=== PATIENT | male | born 1960 | race Caucasian/White ===

== ENCOUNTER 2020-04-01 22:27 | Inpatient (IN) | payer SELFPAY ==
[~2020-04-01] VITALS: Ht 172.7 cm; Wt 85.6 kg
--- NOTE | 2020-04-01 22:52 | PHYS DOC ---
General Adult EDM: Chief Complaint: FATIGUE HPI: HPI: Patient is a 59 year old male who arrives with chief complaint of fatigue. Patient was recently told he has a low hemoglobin and was told to come in although he waited a couple weeks to come in. Patient has had some generalized weakness but denies blood in his stool. Patient has some mild shortness of breath and a chronic smoker's cough but denies any fever. Patient has some abdominal discomfort with eating but not at the current time. Review of Systems: Review of Systems: Constitutional: Denies fever or chills. [] Complains of generalized weakness Eyes: Denies change in visual acuity. [] HENT: Denies nasal congestion or sore throat. [] Respiratory: Complains of mild smoker's cough and mild shortness of breath Cardiovascular: Denies chest pain or edema. [] GI: Complains of intermittent abdominal pain but no vomiting diarrhea or blood in the stool : Denies dysuria. [] Musculoskeletal: Denies back pain or joint pain. [] Integument: Denies rash. [] Neurologic: Denies headache, focal weakness or sensory changes. [] Endocrine: Denies polyuria or polydipsia. [] Lymphatic: Denies swollen glands. [] Psychiatric: Denies depression or anxiety. [] Heart Score: Risk Factors: Risk Factors: DM, Current or recent (<one month) smoker, HTN, HLP, family history of CAD, obesity. Risk Scores: Score 0 - 3: 2.5% MACE over next 6 weeks - Discharge Home Score 4 - 6: 20.3% MACE over next 6 weeks - Admit for Clinical Observation Score 7 - 10: 72.7% MACE over next 6 weeks - Early Invasive Strategies Physical Exam: PE: Constitutional: Well developed, well nourished, no acute distress, non-toxic appearance. [] HENT: Normocephalic, atraumatic, bilateral external ears normal, no trismus nose normal. [] Eyes: PERRLA, EOMI, pale conjunctiva Neck: Normal range of motion, no tenderness, supple, no stridor. [] Cardiovascular:Heart rate regular rhythm, peripheral pulse intact, cap refill brisk Lungs & Thorax: Bilateral breath sounds clear, no respiratory distress Abdomen: Bowel sounds normal, soft, no tenderness, no masses, no pulsatile masses. [] Skin: Warm, dry, no erythema, no rash. [] Back: No tenderness, no CVA tenderness. [] Extremities: Mild edema bilateral lower extremity edema, peripheral pulses intact, no signs of trauma Neurologic: Alert and oriented X 3, normal motor function, normal sensory function, no focal deficits noted. [] Psychologic: Affect normal, judgement normal, mood normal. [] Current Patient Data: Labs: Laboratory Tests Test 04/01/20 23:04 04/01/20 23:33 White Blood Count 13.5 x10^3/uL Red Blood Count 2.76 x10^6/uL Hemoglobin 5.1 g/dL Hematocrit 18.2 % Mean Corpuscular Volume 66 fL Mean Corpuscular Hemoglobin 19 pg Mean Corpuscular Hemoglobin Concent 28 g/dL Red Cell Distribution Width 19.4 % Platelet Count 402 x10^3/uL Neutrophils (%) (Auto) 73 % Lymphocytes (%) (Auto) 17 % Monocytes (%) (Auto) 8 % Eosinophils (%) (Auto) 1 % Basophils (%) (Auto) 1 % Neutrophils # (Auto) 9.8 x10^3/uL Lymphocytes # (Auto) 2.3 x10^3/uL Monocytes # (Auto) 1.0 x10^3/uL Eosinophils # (Auto) 0.1 x10^3/uL Basophils # (Auto) 0.2 x10^3/uL Platelet Estimate Adequate Polychromasia Slight Hypochromasia Marked Anisocytosis Slight Microcytosis Marked Spherocytes Occ Ovalocytes Few Sodium Level 137 mmol/L Potassium Level 3.7 mmol/L Chloride Level 100 mmol/L Carbon Dioxide Level 26 mmol/L Anion Gap 11 Blood Urea Nitrogen 17 mg/dL Creatinine 1.0 mg/dL Estimated GFR (Cockcroft-Gault) 76.5 BUN/Creatinine Ratio 17 Glucose Level 103 mg/dL Calcium Level 8.5 mg/dL Total Bilirubin 0.3 mg/dL Aspartate Amino Transf (AST/SGOT) 17 U/L Alanine Aminotransferase (ALT/SGPT) 23 U/L Alkaline Phosphatase 95 U/L Total Protein 7.5 g/dL Albumin 3.6 g/dL Albumin/Globulin Ratio 0.9 Stool Occult Blood Negative Current Medications Medications (Trade) Dose Ordered Sig/Shania Route PRN Reason Start Time Stop Time Status Last Admin Dose Admin Ondansetron HCl (Zofran) 4 mg PRN Q8HRS PRN IV NAUSEA/VOMITING 1st choice 04/02/20 00:45 04/03/20 00:44 Vital Signs: Vital Signs Date Time Temp Pulse Resp B/P (MAP) Pulse Ox O2 Delivery O2 Flow Rate FiO2 04/02/20 04:45 98.5 101 20 159/70 98.5 04/02/20 03:45 98.2 98 20 127/69 98.2 04/02/20 03:30 98.2 100 18 133/67 98.2 04/02/20 02:45 Nasal Cannula 2.0 04/02/20 02:13 98.1 109 18 142/62 (88) 100 Nasal Cannula 2.0 98.1 04/02/20 01:53 101 136/69 (91) 98 Room Air 04/02/20 01:23 105 131/62 (85) 97 Room Air 04/02/20 00:53 99 148/76 (100) 98 Room Air 04/02/20 00:23 99 137/76 (96) 98 Room Air 04/01/20 23:53 99 138/70 (92) 100 Room Air 04/01/20 23:23 99 124/64 (84) 99 Room Air 04/01/20 23:03 102 126/70 (88) 99 Room Air 04/01/20 22:35 97.3 118 24 95/51 (66) 96 Room Air 97.3 EKG: EKG: [] EKG interpreted by me normal sinus rhythm with a rate of 100 normal axis normal intervals normal ST segments Radiology/Procedures: Radiology/Procedures: [][facility] [address] [place], [place] [id number] IMAGING REPORT Signed PATIENT: CHIKIS JOHNSON ACCOUNT: [id number] : 1960 LOCATION: [facility] AGE: 59 SEX: M EXAM STATUS: ADM IN ORD. PHYSICIAN: DARI SAMUEL MD REASON: weakness PROCEDURE: PORTABLE CHEST 1V PORTABLE CHEST 1V Clinical Indication: Reason: weakness / Spl. Instructions: / History: Comparison: None. Findings: There is moderate hiatal hernia. The cardiomediastinal silhouette is normal. Lungs are clear. There is no pneumothorax. No pleural effusion is appreciated. No acute bone abnormality. IMPRESSION: 1. No acute cardiopulmonary process. 2. Moderate hiatal hernia. Electronically signed by: Yogesh Zhu MD (04/02/2020 1:57 AM) [facility] DICTATED and SIGNED BY: YOGESH ZHU MD DATE: 04/02/20 0157 Course & Med Decision Making: Course & Med Decision Making Pertinent Labs and Imaging studies reviewed. (See chart for details) [] 59-year-old male presents with profound anemia. Hemoglobin is 5. Guaiac is negative. Patient will be admitted to for further evaluation treatment. Blood transfusions were started in ER. Dragon Disclaimer: Dragon Disclaimer: This electronic medical record was generated, in whole or in part, using a voice recognition dictation system. Departure Departure Impression: Primary Impression: Profound anemia Disposition: ADMITTED INPATIENT Admitting Physician: ELISABETH MOTLEY) Condition: STABLE Justicifation of Admission Dx: Justifications for Admission: Justification of Admission Dx: Yes (PROFOUND ANEMIA) DARI SAMUEL MD Apr 01, 2020 22:52
[2020-04-01 23:13] LABS: BASO # 0.2 x10^3/uL (0.0-0.2); BASO % 1 % (0-3); EOS # 0.1 x10^3/uL (0.0-0.7); EOS % 1 % (0-3); LYMPH # 2.3 x10^3/uL (1.0-4.8); LYMPH % 17 % (24-48); MEAN CORPUSCULAR HEMOGLOBIN 19 pg (25-35); MEAN CORPUSCULAR HGB CONC 28 g/dL (31-37); MEAN CORPUSCULAR VOLUME 66 fL (79-100); MONO % 8 % (0-9); NEUT # 9.8 x10^3/uL (1.8-7.7); NEUT % 73 % (31-73); PLATELET COUNT 402 x10^3/uL (140-400); RED BLOOD COUNT 2.76 x10^6/uL (4.30-5.70); RED CELL DISTRIBUTION WIDTH 19.4 % (11.5-14.5); WHITE BLOOD COUNT 13.5 x10^3/uL (4.0-11.0)
[2020-04-01 23:18] LABS: HEMATOCRIT 18.2 % (39.0-53.0); HEMOGLOBIN 5.1 g/dL (13.0-17.5)
[2020-04-01 23:19] LABS: CALCIUM 8.5 mg/dL (8.5-10.1); GFR 76.5; POTASSIUM 3.7 mmol/L (3.5-5.1)
[2020-04-01 23:25] LABS: ALBUMIN 3.6 g/dL (3.4-5.0); ALBUMIN/GLOBULIN RATIO 0.9 (1.0-1.7); TOTAL BILIRUBIN 0.3 mg/dL (0.2-1.0); TOTAL PROTEIN 7.5 g/dL (6.4-8.2)
[2020-04-01 23:39] LABS: ANISOCYTOSIS SLIGHT; HYPOCHROMIA MARKED; MICROCYTOSIS MARKED; PLT ESTIMATE ADEQUATE (ADEQUATE)
[2020-04-01 23:40] LABS: OVALOCYTES FEW; POLYCHROMASIA SLIGHT; SPHEROCYTES OCC
[2020-04-01 23:42] LABS: FECAL OB PT NEGATIVE (NEG)
[2020-04-02] VITALS (14 sets, daily range): BP systolic 101–159; BP diastolic 54–75
[2020-04-02] MEDS ORDERED: ONDANSETRON PF 4 MG/2 ML VIAL. IV PRN ×2 (00:45→06:45)
--- NOTE | 2020-04-02 01:59 | RAD ---
PORTABLE CHEST 1V Clinical Indication: Reason: weakness / Spl. Instructions: / History: Comparison: None. Findings: There is moderate hiatal hernia. The cardiomediastinal silhouette is normal. Lungs are clear. There is no pneumothorax. No pleural effusion is appreciated. No acute bone abnormality. IMPRESSION: 1. No acute cardiopulmonary process. 2. Moderate hiatal hernia. Electronically signed by: Yogesh Zhu MD (04/02/2020 1:57 AM) [facility]
[2020-04-02] MEDS ORDERED: ACETAMINOPHEN 325 MG TABLET. PO PRN ×2 (02:15→06:45)
[2020-04-02] MEDS ORDERED: diphenhydrAMINE 50 MG/ML VIAL IVP PRN ×2 (02:15→06:45)
[2020-04-02] MEDS ORDERED: CYCL10TA2 PO (03:59)
[2020-04-02] MEDS ORDERED: METO-239 PO (03:59)
[2020-04-02] MEDS ORDERED: ESCITALOPRAM OX10 MG PO (03:59)
[2020-04-02] MEDS ORDERED: AMLO10TA8 PO (03:59)
[2020-04-02] MEDS ORDERED: ATOR40TA59 PO (03:59)
[2020-04-02] MEDS ORDERED: CLON-77 PO (03:59)
[2020-04-02] MEDS ORDERED: ASPI-630 PO (03:59)
[2020-04-02] MEDS ORDERED: LISI-334 PO (03:59)
[2020-04-02] MEDS ORDERED: VENTOLIN HFA18 GM INH (03:59)
[2020-04-02] MEDS ORDERED: CYCLOBENZAPRINE 10 MG TABLET. PO PRN (06:45)
[2020-04-02] MEDS ORDERED: DOCUSATE SODIUM 100 MG CAPSULE. PO PRN (06:45)
[2020-04-02] MEDS ORDERED: ZOLPIDEM 5 MG TABLET. PO PRN (06:45)
[2020-04-02] MEDS ORDERED: NON FORMULARY ITEM (Albuterol Sulfate (Ventolin Hfa Inhaler) 2 PUFF) INH PRN (06:45)
[2020-04-02] MEDS ORDERED: guaiFENesin ORAL 200 MG/10 ML LIQUID. PO PRN (06:45)
[2020-04-02] MEDS ORDERED: LORazepam 0.5 MG TABLET PO PRN (06:45)
[2020-04-02] MEDS ORDERED: NICOTINE 14MG PATCH. TD PRN (07:00)
--- NOTE | 2020-04-02 07:07 | EKG ---
[facility] [address] [place] [address] Test Date: 2020-04-01 Test Time: 23:14:55 Pat Name: CHIKIS JOHNSON Department: Room: Gender: M Echo Vascular Tech: : 1960 Requested By: DARI SAMUEL Order Number: [id number] Reading MD: Measurements Intervals [place] Rate: 100 P: 42 UT: 140 QRS: 45 QRSD: 96 T: 56 QT: 338 QTc: 439 Interpretive Statements SINUS RHYTHM NORMAL ECG RI6.02 No previous ECG available for comparison
[2020-04-02 07:17] LABS: BASO # 0.1 x10^3/uL (0.0-0.2); BASO % 1 % (0-3); EOS # 0.3 x10^3/uL (0.0-0.7); EOS % 2 % (0-3); LYMPH # 2.6 x10^3/uL (1.0-4.8); LYMPH % 23 % (24-48); MEAN CORPUSCULAR HEMOGLOBIN 20 pg (25-35); MEAN CORPUSCULAR HGB CONC 30 g/dL (31-37); MEAN CORPUSCULAR VOLUME 68 fL (79-100); MONO # 0.9 x10^3/uL (0.0-1.1); MONO % 7 % (0-9); NEUT # 7.9 x10^3/uL (1.8-7.7); NEUT % 67 % (31-73); PLATELET COUNT 356 x10^3/uL (140-400); RED BLOOD COUNT 3.06 x10^6/uL (4.30-5.70); RED CELL DISTRIBUTION WIDTH 22.2 % (11.5-14.5); WHITE BLOOD COUNT 11.8 x10^3/uL (4.0-11.0)
[2020-04-02 07:21] LABS: CALCIUM 8.3 mg/dL (8.5-10.1); CREATININE 0.8 mg/dL (0.7-1.3); GFR 98.9; POTASSIUM 4.2 mmol/L (3.5-5.1)
[2020-04-02] MEDS: IV NORMAL SALINE 1000ML BAG 1,000 ML IV SCH ×2 (07:59→21:13)
[2020-04-02] MEDS ORDERED: PANTOPRAZOLE SODIUM IV DRIP 80 MG in IV NORMAL SALINE 100ML 100 ML IV SCH (08:00)
[2020-04-02] MEDS: LISINOPRIL 20 MG TABLET PO SCH (09:00)
[2020-04-02] MEDS: amLODIPine BESYLATE 10 MG TABLET PO SCH (09:00)
[2020-04-02] MEDS: ASPIRIN CHEWABLE 81 MG TABLET. PO SCH (09:00)
[2020-04-02] MEDS: CITALOPRAM 20 MG TABLET. PO SCH (09:00)
[2020-04-02] MEDS ORDERED: PANTOPRAZOLE IV PUSH 40 MG VIAL. IVP SCH (09:00)
--- NOTE | 2020-04-02 09:23 | PDOC1 ---
History and Physical Date of Admission Date of Admission 04/02/2020 Identification/Chief Complaint Chief Complaint My daughter told me I looked like a Lizbet Source Source: Chart review, Patient History of Present Illness History of Present Illness Patient is a 59-year-old gentleman with past medical history of alcohol abuse and several DUIs who has been sober for over a year now. The patient has also had longstanding history of smoking and he has been in his usual state of health until several months ago apparently he had a severe anemia that prompted him to visit [facility] where he had an EGD capsule endoscopy and colonoscopy done and there were no evidence of active ulcers on his endoscopy he did have a hiatal hernia which he seems to have a lot of discomfort from. The patient also was found to have some areas in the small intestine that most likely explain his anemia. The patient was told to follow-up in the outpatient setting but he has not done so and the day of his admission the patient was told by his daughter that he looked like a lizbet patient was also having some shortness of breath and chest discomfort over the right hemithorax with no palpitations no dizziness no lightheadedness was reported but he did have generalized weakness. He was evaluated in the ER and found to have severe anemia.hemodynamic instability and but we have been asked to admit the patient for blood transfusion and also GI evaluation. At the present time the patient is in no acute distress his not exhibiting increased work of breathing no chest pain no palpitations have been reported no abdominal pain either., Plan of care has been explained detail and all of his concerns addressed to the best of my abilities Past Medical History Past Medical History Alcoholism currently sober Past Surgical History Past Surgical History: No pertinent history Family History Family History: No Significant Social History Smoke: # pack years (50) ALCOHOL: none Drugs: None Current Problem List Problem List Problems Medical Problems: (1) Profound anemia Status: Acute Current Medications Current Medications Current Medications Medications (Trade) Dose Ordered Sig/Shania Start Time Stop Time Status Last Admin Dose Admin Acetaminophen (Tylenol) 650 mg PRN Q4HRS PRN 04/02/20 06:45 Albuterol Sulfate (Ventolin Neb Soln) 2.5 mg PRN Q4HRS PRN 04/02/20 06:45 Amlodipine Besylate (Norvasc) 10 mg DAILY 04/02/20 09:00 Aspirin (Aspirin Chewable) 81 mg DAILY 04/02/20 09:00 Atorvastatin Calcium (Lipitor) 40 mg DAILY 04/02/20 09:00 Citalopram Hydrobromide (CeleXA) 20 mg DAILY 04/02/20 09:00 Clonazepam (KlonoPIN) 0.5 mg BID 04/02/20 09:00 Cyclobenzaprine HCl (Flexeril) 10 mg PRN TID PRN 04/02/20 06:45 Diphenhydramine HCl (Benadryl) 25 mg PRN Q4HRS PRN 04/02/20 06:45 Docusate Sodium (Colace) 100 mg PRN BID PRN 04/02/20 06:45 Guaifenesin (Robitussin) 200 mg PRN Q4HRS PRN 04/02/20 06:45 Lisinopril (Prinivil) 20 mg DAILY 04/02/20 09:00 Lorazepam (Ativan) 0.5 mg PRN Q4HRS PRN 04/02/20 06:45 Metoprolol Succinate (Toprol Xl) 25 mg DAILY 04/02/20 09:00 Nicotine (Nicoderm Cq 14mg) 1 patch PRN DAILY PRN 04/02/20 07:00 Non-Formulary Medication (Albuterol Sulfate (Ventolin Hfa Inhaler)) 2 puff PRN Q6HRS PRN 04/02/20 06:45 UNV Ondansetron HCl (Zofran) 4 mg PRN Q4HRS PRN 04/02/20 06:45 Pantoprazole Sodium (PROTONIX VIAL for IV PUSH) 40 mg BID 04/02/20 09:00 04/02/20 07:34 DC Pantoprazole Sodium 80 mg/ Sodium Chloride 100 ml @ 10 mls/hr Q10H 04/02/20 08:00 04/02/20 07:59 10 MLS/HR Sodium Chloride 1,000 ml @ 75 mls/hr [id number] 04/02/20 07:30 04/02/20 07:59 75 MLS/HR Zolpidem Tartrate (Ambien) 5 mg PRN QHS PRN 04/02/20 06:45 Allergies Allergies Allergies Coded Allergies Type Severity Reaction Last Updated Verified codeine Adverse Reaction Intermediate itching 04/01/20 Yes ROS Review of System CONSTITUTIONAL: No fever or chills EYES: No recent changes SKIN: No rash or itching CARDIOVASCULAR: No chest pain, syncope, palpitations, or edema RESPIRATORY: No SOB or cough GASTROINTESTINAL: No nausea, vomiting or abdominal pain NEUROLOGICAL: No headaches or weakness ENDOCRINE: No cold or heat intolerance GENITOURINARY: No urgency or frequency of urination MUSCULOSKELETAL: No back pain or joint pain LYMPHATICS: No enlarged lymph nodes PSYCHIATRIC: No anxiety or depression Physical Exam Physical Exam GEN.: No apparent distress. Alert and oriented. HEENT: Head is normocephalic, atraumatic NECK: Supple. LUNGS: Clear to auscultation. HEART: RRR, S1, S2 present. Peripheral pulses intact ABDOMEN: Soft, nontender. Positive bowel sounds. EXTREMITIES: Without any cyanosis. NEUROLOGIC: Normal speech, normal tone PSYCHIATRIC: Normal affect, normal mood. SKIN: No ulcerations Vitals Vitals Vital Signs Date Time Temp Pulse Resp B/P (MAP) Pulse Ox O2 Delivery O2 Flow Rate FiO2 04/02/20 08:39 97.6 94 16 135/75 97.6 04/02/20 07:00 100 Nasal Cannula 2.0 Labs Labs Laboratory Tests Test 04/01/20 23:04 04/01/20 23:33 04/02/20 06:55 White Blood Count 13.5 x10^3/uL (4.0-11.0) 11.8 x10^3/uL (4.0-11.0) Red Blood Count 2.76 x10^6/uL (4.30-5.70) 3.06 x10^6/uL (4.30-5.70) Hemoglobin 5.1 g/dL (13.0-17.5) 6.2 g/dL (13.0-17.5) Hematocrit 18.2 % (39.0-53.0) 20.8 % (39.0-53.0) Mean Corpuscular Volume 66 fL (79-100) 68 fL (79-100) Mean Corpuscular Hemoglobin 19 pg (25-35) 20 pg (25-35) Mean Corpuscular Hemoglobin Concent 28 g/dL (31-37) 30 g/dL (31-37) Red Cell Distribution Width 19.4 % (11.5-14.5) 22.2 % (11.5-14.5) Platelet Count 402 x10^3/uL (140-400) 356 x10^3/uL (140-400) Neutrophils (%) (Auto) 73 % (31-73) 67 % (31-73) Lymphocytes (%) (Auto) 17 % (24-48) 23 % (24-48) Monocytes (%) (Auto) 8 % (0-9) 7 % (0-9) Eosinophils (%) (Auto) 1 % (0-3) 2 % (0-3) Basophils (%) (Auto) 1 % (0-3) 1 % (0-3) Neutrophils # (Auto) 9.8 x10^3/uL (1.8-7.7) 7.9 x10^3/uL (1.8-7.7) Lymphocytes # (Auto) 2.3 x10^3/uL (1.0-4.8) 2.6 x10^3/uL (1.0-4.8) Monocytes # (Auto) 1.0 x10^3/uL (0.0-1.1) 0.9 x10^3/uL (0.0-1.1) Eosinophils # (Auto) 0.1 x10^3/uL (0.0-0.7) 0.3 x10^3/uL (0.0-0.7) Basophils # (Auto) 0.2 x10^3/uL (0.0-0.2) 0.1 x10^3/uL (0.0-0.2) Platelet Estimate Adequate (ADEQUATE) Polychromasia Slight Hypochromasia Marked Anisocytosis Slight Microcytosis Marked Spherocytes Occ Ovalocytes Few Sodium Level 137 mmol/L (136-145) 139 mmol/L (136-145) Potassium Level 3.7 mmol/L (3.5-5.1) 4.2 mmol/L (3.5-5.1) Chloride Level 100 mmol/L (98-107) 105 mmol/L (98-107) Carbon Dioxide Level 26 mmol/L (21-32) 26 mmol/L (21-32) Anion Gap 11 (6-14) 8 (6-14) Blood Urea Nitrogen 17 mg/dL (8-26) 13 mg/dL (8-26) Creatinine 1.0 mg/dL (0.7-1.3) 0.8 mg/dL (0.7-1.3) Estimated GFR (Cockcroft-Gault) 76.5 98.9 BUN/Creatinine Ratio 17 (6-20) Glucose Level 103 mg/dL (70-99) 100 mg/dL (70-99) Calcium Level 8.5 mg/dL (8.5-10.1) 8.3 mg/dL (8.5-10.1) Total Bilirubin 0.3 mg/dL (0.2-1.0) Aspartate Amino Transf (AST/SGOT) 17 U/L (15-37) Alanine Aminotransferase (ALT/SGPT) 23 U/L (16-63) Alkaline Phosphatase 95 U/L (46-116) Total Protein 7.5 g/dL (6.4-8.2) Albumin 3.6 g/dL (3.4-5.0) Albumin/Globulin Ratio 0.9 (1.0-1.7) Stool Occult Blood Negative (NEG) Laboratory Tests Test 04/01/20 23:04 04/01/20 23:33 04/02/20 06:55 White Blood Count 13.5 x10^3/uL (4.0-11.0) 11.8 x10^3/uL (4.0-11.0) Red Blood Count 2.76 x10^6/uL (4.30-5.70) 3.06 x10^6/uL (4.30-5.70) Hemoglobin 5.1 g/dL (13.0-17.5) 6.2 g/dL (13.0-17.5) Hematocrit 18.2 % (39.0-53.0) 20.8 % (39.0-53.0) Mean Corpuscular Volume 66 fL (79-100) 68 fL (79-100) Mean Corpuscular Hemoglobin 19 pg (25-35) 20 pg (25-35) Mean Corpuscular Hemoglobin Concent 28 g/dL (31-37) 30 g/dL (31-37) Red Cell Distribution Width 19.4 % (11.5-14.5) 22.2 % (11.5-14.5) Platelet Count 402 x10^3/uL (140-400) 356 x10^3/uL (140-400) Neutrophils (%) (Auto) 73 % (31-73) 67 % (31-73) Lymphocytes (%) (Auto) 17 % (24-48) 23 % (24-48) Monocytes (%) (Auto) 8 % (0-9) 7 % (0-9) Eosinophils (%) (Auto) 1 % (0-3) 2 % (0-3) Basophils (%) (Auto) 1 % (0-3) 1 % (0-3) Neutrophils # (Auto) 9.8 x10^3/uL (1.8-7.7) 7.9 x10^3/uL (1.8-7.7) Lymphocytes # (Auto) 2.3 x10^3/uL (1.0-4.8) 2.6 x10^3/uL (1.0-4.8) Monocytes # (Auto) 1.0 x10^3/uL (0.0-1.1) 0.9 x10^3/uL (0.0-1.1) Eosinophils # (Auto) 0.1 x10^3/uL (0.0-0.7) 0.3 x10^3/uL (0.0-0.7) Basophils # (Auto) 0.2 x10^3/uL (0.0-0.2) 0.1 x10^3/uL (0.0-0.2) Platelet Estimate Adequate (ADEQUATE) Polychromasia Slight Hypochromasia Marked Anisocytosis Slight Microcytosis Marked Spherocytes Occ Ovalocytes Few Sodium Level 137 mmol/L (136-145) 139 mmol/L (136-145) Potassium Level 3.7 mmol/L (3.5-5.1) 4.2 mmol/L (3.5-5.1) Chloride Level 100 mmol/L (98-107) 105 mmol/L (98-107) Carbon Dioxide Level 26 mmol/L (21-32) 26 mmol/L (21-32) Anion Gap 11 (6-14) 8 (6-14) Blood Urea Nitrogen 17 mg/dL (8-26) 13 mg/dL (8-26) Creatinine 1.0 mg/dL (0.7-1.3) 0.8 mg/dL (0.7-1.3) Estimated GFR (Cockcroft-Gault) 76.5 98.9 BUN/Creatinine Ratio 17 (6-20) Glucose Level 103 mg/dL (70-99) 100 mg/dL (70-99) Calcium Level 8.5 mg/dL (8.5-10.1) 8.3 mg/dL (8.5-10.1) Total Bilirubin 0.3 mg/dL (0.2-1.0) Aspartate Amino Transf (AST/SGOT) 17 U/L (15-37) Alanine Aminotransferase (ALT/SGPT) 23 U/L (16-63) Alkaline Phosphatase 95 U/L (46-116) Total Protein 7.5 g/dL (6.4-8.2) Albumin 3.6 g/dL (3.4-5.0) Albumin/Globulin Ratio 0.9 (1.0-1.7) Stool Occult Blood Negative (NEG) VTE Prophylaxis Ordered VTE Prophylaxis Devices: Yes VTE Pharmacological Prophylaxi: No Assessment/Plan Assessment/Plan Microcytic anemia most likely secondary to iron deficiency Iron deficiency secondary to most likely GI bleeding Patient refers having black tarry stools, most likely upper GI bleeding is the etiology History of alcohol abuse currently sober Tobacco abuse greater than [id number] history of smoking Tobacco cessation counseling done less than 10 minutes Plan GI consultation We will follow-up on records requested from [facility] Transfuse 2 units of packed red blood cells Monitor hemodynamic Resume home medications once available for review Further commendations based on clinical DVT prophylaxis with SCDs Justifications for Admission Other Justification DI ALEJANDRO MD Apr 02, 2020 09:23
[2020-04-02 12:10] LABS: HEMATOCRIT 23.6 % (39.0-53.0); HEMOGLOBIN 7.3 g/dL (13.0-17.5)
--- NOTE | 2020-04-02 12:16 | PDOC2 ---
CONSULT Date of Consult Date of Consult DATE: 04/02/20 TIME: 12:09 Reason for Consult Reason for Consult: Recurrent iron deficiency anemia History of Present Illness Reason for Visit: This is a 59-year-old gentleman who presents with profound weakness and fatigue and was found to have a hemoglobin of 5.1. His history is complicated and dates back for at least 1 or 2 years. He has had anemia with supposed occult GI blood loss but had an extensive work-up last year at [facility]. We do not have those records but he gives us a fairly detailed history suggesting EGD with hiatal hernia and reflux but otherwise normal, normal colonoscopy and apparently a normal small bowel capsule. Unfortunately he was not able to take oral iron because of indigestion symptoms and since last year has not been on any supplemental iron. He also was in [facility] for 4 months due to a DUI but is now been sober for about a year and is on a alcohol monitoring program. He does not take any NSAIDs just a baby aspirin. He was however on Plavix for a year between January 2019 and January of this year due to a heart attack and stent placement. He stopped taking Plavix in January of this year. Denies any overt bleeding but does describe occasional dark stool which does not recur. On presentation here he denies abdominal pain but does have recurrent acid reflux symptoms and has been taking famotidine with limited improvement. Past Medical History Cardiovascular: CAD, [place] GI: GERD Heme/Onc: Iron deficiency Anemia Past Surgical History Past Surgical History: No pertinent history Family History Family History: No Significant Social History # pack years (50) ALCOHOL: none Drugs: None Current Problem List Problem List Problems Medical Problems: (1) Profound anemia Status: Acute Current Medications Current Medications Current Medications Ondansetron HCl (Zofran) 4 mg PRN Q8HRS PRN IV NAUSEA/VOMITING 1st choice; Start 04/02/20 at 00:45; Stop 04/02/20 at 06:50; Status DC Diphenhydramine HCl (Benadryl) 25 mg PRN Q6HRS PRN IVP ITCHING; Start 04/02/20 at 02:15; Stop 04/02/20 at 06:49; Status DC Acetaminophen (Tylenol) 650 mg PRN Q6HRS PRN PO FEVER > 100.3'F; Start 04/02/20 at 02:15; Status Cancel Pantoprazole Sodium (PROTONIX VIAL for IV PUSH) 40 mg BID IVP ; Start 04/02/20 at 09:00; Stop 04/02/20 at 07:34; Status DC Ondansetron HCl (Zofran) 4 mg PRN Q4HRS PRN IV NAUSEA/VOMITING 1ST CHOICE; Start 04/02/20 at 06:45 Zolpidem Tartrate (Ambien) 5 mg PRN QHS PRN PO INSOMNIA; Start 04/02/20 at 06:45 Acetaminophen (Tylenol) 650 mg PRN Q4HRS PRN PO TEMP OVER 100.4F OR MILD PAIN; Start 04/02/20 at 06:45 Diphenhydramine HCl (Benadryl) 25 mg PRN Q4HRS PRN IVP ITCHING; Start 04/02/20 at 06:45 Docusate Sodium (Colace) 100 mg PRN BID PRN PO HARD STOOLS; Start 04/02/20 at 06:45 Albuterol Sulfate (Ventolin Neb Soln) 2.5 mg PRN Q4HRS PRN NEB SHORTNESS OF BREATH; Start 04/02/20 at 06:45 Guaifenesin (Robitussin) 200 mg PRN Q4HRS PRN PO COUGH; Start 04/02/20 at 06:45 Lorazepam (Ativan) 0.5 mg PRN Q4HRS PRN PO ANXIETY / AGITATION; Start 04/02/20 at 06:45 Amlodipine Besylate (Norvasc) 10 mg DAILY PO ; Start 04/02/20 at 09:00 Aspirin (Aspirin Chewable) 81 mg DAILY PO ; Start 04/02/20 at 09:00 Atorvastatin Calcium (Lipitor) 40 mg DAILY PO ; Start 04/02/20 at 09:00 Clonazepam (KlonoPIN) 0.5 mg BID PO ; Start 04/02/20 at 09:00 Cyclobenzaprine HCl (Flexeril) 10 mg PRN TID PRN PO MUSCLE PAIN; Start 04/02/20 at 06:45 Lisinopril (Prinivil) 20 mg DAILY PO ; Start 04/02/20 at 09:00 Metoprolol Succinate (Toprol Xl) 25 mg DAILY PO ; Start 04/02/20 at 09:00 Non-Formulary Medication (Albuterol Sulfate (Ventolin Hfa Inhaler)) 2 puff PRN Q6HRS PRN INH COUGH; Start 04/02/20 at 06:45; Status UNV Citalopram Hydrobromide (CeleXA) 20 mg DAILY PO ; Start 04/02/20 at 09:00 Nicotine (Nicoderm Cq 14mg) 1 patch PRN DAILY PRN TD SMOKING CESSATION; Start 04/02/20 at 07:00 Pantoprazole Sodium 80 mg/ Sodium Chloride 100 ml @ 10 mls/hr Q10H IV Last administered on 04/02/20at 07:59; Start 04/02/20 at 08:00 Sodium Chloride 1,000 ml @ 75 mls/hr [id number] IV Last administered on 04/02/20at 07:59; Start 04/02/20 at 07:30 Active Scripts Active Reported Ventolin Hfa Inhaler (Albuterol Sulfate) 18 Gm Hfa.aer.ad 2 Puff INH PRN Q6HRS PRN Aspirin 81 Mg Tab.chew 1 Tab PO DAILY Cyclobenzaprine Hcl 10 Mg Tablet 10 Mg PO PRN TID PRN Clonazepam (Clonazepam) 0.5 Mg Tablet 0.5 Mg PO BID Atorvastatin Calcium 40 Mg Tablet 40 Mg PO DAILY Lisinopril 20 Mg Tablet 20 Mg PO DAILY Amlodipine Besylate 10 Mg Tablet 10 Mg PO DAILY Escitalopram Oxalate 10 Mg Tablet 10 Mg PO DAILY Metoprolol Succinate ( Xl ) (Metoprolol Succinate) 25 Mg Tab.er.24h 25 Mg PO DAILY Allergies Allergies: Coded Allergies: codeine (Verified Adverse Reaction, Intermediate, itching, 04/01/20) Physical Exam General: Alert, Oriented X3 HEENT: PERRLA Lungs: Clear to auscultation Heart: Regular rate, Normal S1, Normal S2 Abdomen: Normal bowel sounds, Soft, No tenderness, No hepatosplenomegaly, No masses Extremities: No clubbing, No cyanosis Skin: No rashes Psych/Mental Status: Mental status NL Vitals VITALS Vital Signs Date Time Temp Pulse Resp B/P (MAP) Pulse Ox O2 Delivery O2 Flow Rate FiO2 04/02/20 11:50 95 Room Air 04/02/20 10:35 98.6 93 18 103/63 98.6 04/02/20 08:00 2.0 Labs Labs Laboratory Tests Test 04/01/20 23:04 04/01/20 23:33 04/02/20 06:55 White Blood Count 13.5 x10^3/uL (4.0-11.0) 11.8 x10^3/uL (4.0-11.0) Red Blood Count 2.76 x10^6/uL (4.30-5.70) 3.06 x10^6/uL (4.30-5.70) Hemoglobin 5.1 g/dL (13.0-17.5) 6.2 g/dL (13.0-17.5) Hematocrit 18.2 % (39.0-53.0) 20.8 % (39.0-53.0) Mean Corpuscular Volume 66 fL (79-100) 68 fL (79-100) Mean Corpuscular Hemoglobin 19 pg (25-35) 20 pg (25-35) Mean Corpuscular Hemoglobin Concent 28 g/dL (31-37) 30 g/dL (31-37) Red Cell Distribution Width 19.4 % (11.5-14.5) 22.2 % (11.5-14.5) Platelet Count 402 x10^3/uL (140-400) 356 x10^3/uL (140-400) Neutrophils (%) (Auto) 73 % (31-73) 67 % (31-73) Lymphocytes (%) (Auto) 17 % (24-48) 23 % (24-48) Monocytes (%) (Auto) 8 % (0-9) 7 % (0-9) Eosinophils (%) (Auto) 1 % (0-3) 2 % (0-3) Basophils (%) (Auto) 1 % (0-3) 1 % (0-3) Neutrophils # (Auto) 9.8 x10^3/uL (1.8-7.7) 7.9 x10^3/uL (1.8-7.7) Lymphocytes # (Auto) 2.3 x10^3/uL (1.0-4.8) 2.6 x10^3/uL (1.0-4.8) Monocytes # (Auto) 1.0 x10^3/uL (0.0-1.1) 0.9 x10^3/uL (0.0-1.1) Eosinophils # (Auto) 0.1 x10^3/uL (0.0-0.7) 0.3 x10^3/uL (0.0-0.7) Basophils # (Auto) 0.2 x10^3/uL (0.0-0.2) 0.1 x10^3/uL (0.0-0.2) Platelet Estimate Adequate (ADEQUATE) Polychromasia Slight Hypochromasia Marked Anisocytosis Slight Microcytosis Marked Spherocytes Occ Ovalocytes Few Sodium Level 137 mmol/L (136-145) 139 mmol/L (136-145) Potassium Level 3.7 mmol/L (3.5-5.1) 4.2 mmol/L (3.5-5.1) Chloride Level 100 mmol/L (98-107) 105 mmol/L (98-107) Carbon Dioxide Level 26 mmol/L (21-32) 26 mmol/L (21-32) Anion Gap 11 (6-14) 8 (6-14) Blood Urea Nitrogen 17 mg/dL (8-26) 13 mg/dL (8-26) Creatinine 1.0 mg/dL (0.7-1.3) 0.8 mg/dL (0.7-1.3) Estimated GFR (Cockcroft-Gault) 76.5 98.9 BUN/Creatinine Ratio 17 (6-20) Glucose Level 103 mg/dL (70-99) 100 mg/dL (70-99) Calcium Level 8.5 mg/dL (8.5-10.1) 8.3 mg/dL (8.5-10.1) Total Bilirubin 0.3 mg/dL (0.2-1.0) Aspartate Amino Transf (AST/SGOT) 17 U/L (15-37) Alanine Aminotransferase (ALT/SGPT) 23 U/L (16-63) Alkaline Phosphatase 95 U/L (46-116) Total Protein 7.5 g/dL (6.4-8.2) Albumin 3.6 g/dL (3.4-5.0) Albumin/Globulin Ratio 0.9 (1.0-1.7) Stool Occult Blood Negative (NEG) Laboratory Tests Test 04/01/20 23:04 04/01/20 23:33 04/02/20 06:55 White Blood Count 13.5 x10^3/uL (4.0-11.0) 11.8 x10^3/uL (4.0-11.0) Red Blood Count 2.76 x10^6/uL (4.30-5.70) 3.06 x10^6/uL (4.30-5.70) Hemoglobin 5.1 g/dL (13.0-17.5) 6.2 g/dL (13.0-17.5) Hematocrit 18.2 % (39.0-53.0) 20.8 % (39.0-53.0) Mean Corpuscular Volume 66 fL (79-100) 68 fL (79-100) Mean Corpuscular Hemoglobin 19 pg (25-35) 20 pg (25-35) Mean Corpuscular Hemoglobin Concent 28 g/dL (31-37) 30 g/dL (31-37) Red Cell Distribution Width 19.4 % (11.5-14.5) 22.2 % (11.5-14.5) Platelet Count 402 x10^3/uL (140-400) 356 x10^3/uL (140-400) Neutrophils (%) (Auto) 73 % (31-73) 67 % (31-73) Lymphocytes (%) (Auto) 17 % (24-48) 23 % (24-48) Monocytes (%) (Auto) 8 % (0-9) 7 % (0-9) Eosinophils (%) (Auto) 1 % (0-3) 2 % (0-3) Basophils (%) (Auto) 1 % (0-3) 1 % (0-3) Neutrophils # (Auto) 9.8 x10^3/uL (1.8-7.7) 7.9 x10^3/uL (1.8-7.7) Lymphocytes # (Auto) 2.3 x10^3/uL (1.0-4.8) 2.6 x10^3/uL (1.0-4.8) Monocytes # (Auto) 1.0 x10^3/uL (0.0-1.1) 0.9 x10^3/uL (0.0-1.1) Eosinophils # (Auto) 0.1 x10^3/uL (0.0-0.7) 0.3 x10^3/uL (0.0-0.7) Basophils # (Auto) 0.2 x10^3/uL (0.0-0.2) 0.1 x10^3/uL (0.0-0.2) Platelet Estimate Adequate (ADEQUATE) Polychromasia Slight Hypochromasia Marked Anisocytosis Slight Microcytosis Marked Spherocytes Occ Ovalocytes Few Sodium Level 137 mmol/L (136-145) 139 mmol/L (136-145) Potassium Level 3.7 mmol/L (3.5-5.1) 4.2 mmol/L (3.5-5.1) Chloride Level 100 mmol/L (98-107) 105 mmol/L (98-107) Carbon Dioxide Level 26 mmol/L (21-32) 26 mmol/L (21-32) Anion Gap 11 (6-14) 8 (6-14) Blood Urea Nitrogen 17 mg/dL (8-26) 13 mg/dL (8-26) Creatinine 1.0 mg/dL (0.7-1.3) 0.8 mg/dL (0.7-1.3) Estimated GFR (Cockcroft-Gault) 76.5 98.9 BUN/Creatinine Ratio 17 (6-20) Glucose Level 103 mg/dL (70-99) 100 mg/dL (70-99) Calcium Level 8.5 mg/dL (8.5-10.1) 8.3 mg/dL (8.5-10.1) Total Bilirubin 0.3 mg/dL (0.2-1.0) Aspartate Amino Transf (AST/SGOT) 17 U/L (15-37) Alanine Aminotransferase (ALT/SGPT) 23 U/L (16-63) Alkaline Phosphatase 95 U/L (46-116) Total Protein 7.5 g/dL (6.4-8.2) Albumin 3.6 g/dL (3.4-5.0) Albumin/Globulin Ratio 0.9 (1.0-1.7) Stool Occult Blood Negative (NEG) Assessment/Plan Assessment/Plan Recurrent microcytic anemia. Presumed to be iron deficient due to his history but iron levels were not available to review today. Nonetheless he has a history of what apparently is occult GI blood loss although other sources for have not been excluded. He describes an extensive GI work-up 1 year ago at [facility] that apparently did not reveal an obvious source for bleeding. And this is not uncommon with patients who have occult GI blood loss particularly those who are on blood thinners such as Plavix. He has not been able to take oral iron in part due to intolerance but also due to recent incarceration. It is likely that he has had almost a year to reaccumulate the significant anemia that he presents with today. Plan: Due to his heartburn symptoms I would recommend PPI therapy regularly. We will review his outpatient [facility] work-up after he is discharged to determine whether any additional work-up may be warranted We will give IV iron infusion along with transfusion while he is here and would recommend close outpatient monitoring of his hemoglobin and recurrent IV iron sucrose therapy until his anemia is resolved Because he is Hemoccult negative and has no obvious bleeding presently no endoscopic evaluation is recommended urgently. Will resume diet. After he is received IV iron and blood transfusion, he is stable for discharge from a GI perspective with presumed follow-up either at [facility] or with our office. WILLIE FLYNN MD Apr 02, 2020 12:16
[2020-04-02] MEDS: METOPROLOL SUCC 24HR ER 25 MG TAB.ER.24H. PO SCH (12:43)
[2020-04-02] MEDS: ATORVASTATIN CALCIUM 40 MG TABLET. PO SCH (12:43)
[2020-04-02] MEDS: clonazePAM 0.5 MG TABLET PO SCH ×2 (12:43→21:13)
[2020-04-02] MEDS ORDERED: IRON SUCROSE COMPLEX 200 MG in IV NORMAL SALINE 100ML 100 ML IV ONE (13:00)
--- NOTE | 2020-04-02 14:34 | RAD ---
EXAM: Abdomen sonogram. HISTORY: Pain. TECHNIQUE: Sonographic imaging of the abdomen was performed. COMPARISON: None. FINDINGS: The liver is normal in size. There is hepatic steatosis. No focal hepatic lesion is seen. The gallbladder is contracted and otherwise unremarkable. The common bile duct is normal in caliber. The right kidney and inferior vena cava are unremarkable. The pancreas is obscured due to bowel gas. IMPRESSION: 1. Hepatic steatosis. 2. No acute sonographic finding. Electronically signed by: Valery Kimbrough MD (04/02/2020 2:31 PM) [id number]
[2020-04-02] MEDS: ALBUTEROL SULFATE 2.5 MG/3 ML NEBU. NEB PRN (21:28)
[2020-04-02] MEDS ORDERED: ALBUTEROL SULFATE 2.5 MG/3 ML NEBU. NEB PRN (21:30)
[2020-04-03 03:25] VITALS: BP 131/86
[2020-04-03 03:38] LABS: BASO # 0.1 x10^3/uL (0.0-0.2); BASO % 1 % (0-3); EOS # 0.1 x10^3/uL (0.0-0.7); EOS % 2 % (0-3); HEMATOCRIT 25.4 % (39.0-53.0); HEMOGLOBIN 7.6 g/dL (13.0-17.5); LYMPH # 1.7 x10^3/uL (1.0-4.8); LYMPH % 19 % (24-48); MEAN CORPUSCULAR HEMOGLOBIN 21 pg (25-35); MEAN CORPUSCULAR HGB CONC 30 g/dL (31-37); MEAN CORPUSCULAR VOLUME 71 fL (79-100); MONO # 0.9 x10^3/uL (0.0-1.1); MONO % 10 % (0-9); NEUT # 6.5 x10^3/uL (1.8-7.7); NEUT % 69 % (31-73); PLATELET COUNT 353 x10^3/uL (140-400); RED BLOOD COUNT 3.58 x10^6/uL (4.30-5.70); RED CELL DISTRIBUTION WIDTH 23.6 % (11.5-14.5); WHITE BLOOD COUNT 9.5 x10^3/uL (4.0-11.0)
[2020-04-03 03:47] LABS: CALCIUM 8.2 mg/dL (8.5-10.1); CREATININE 0.7 mg/dL (0.7-1.3); GFR 115.4; POTASSIUM 4.1 mmol/L (3.5-5.1)
[2020-04-03] MEDS: ALBUTEROL SULFATE 2.5 MG/3 ML NEBU. NEB PRN ×2 (07:24→11:18)
[2020-04-03] MEDS ORDERED: PANTOPRAZOLE 40 MG TABLET.DR. PO SCH (07:30)
[2020-04-03 07:48] VITALS: BP 120/75
[2020-04-03] MEDS: ATORVASTATIN CALCIUM 40 MG TABLET. PO SCH (08:01)
[2020-04-03] MEDS: METOPROLOL SUCC 24HR ER 25 MG TAB.ER.24H. PO SCH (08:01)
[2020-04-03] MEDS: LISINOPRIL 20 MG TABLET PO SCH (08:01)
[2020-04-03] MEDS: clonazePAM 0.5 MG TABLET PO SCH (08:02)
[2020-04-03] MEDS: ASPIRIN CHEWABLE 81 MG TABLET. PO SCH (09:00)
[2020-04-03] MEDS: amLODIPine BESYLATE 10 MG TABLET PO SCH (09:00)
[2020-04-03] MEDS: CITALOPRAM 20 MG TABLET. PO SCH (09:00)
[2020-04-03] MEDS: CALCIUM CARBONATE 500 MG TAB.CHEW PO PRN ×2 (10:03→11:32)
[2020-04-03] MEDS: IV NORMAL SALINE 1000ML BAG 1,000 ML IV SCH (10:04)
--- NOTE | 2020-04-03 10:53 | PDOC ---
GI PROGRESS NOTES Date of Service: Date/Time DATE: 04/03/20 TIME: 10:48 Subjective Subjective Doing well. Hemoglobin up after transfusion. Still complaining of some dyspepsia after eating. Ultrasound was negative for gallstones Objective Vitals Vital Signs Date Time Temp Pulse Resp B/P (MAP) Pulse Ox O2 Delivery O2 Flow Rate FiO2 04/03/20 08:01 104 120/75 04/03/20 08:01 104 120/75 04/03/20 08:00 Room Air 04/03/20 07:48 98.0 104 16 120/75 (90) 100 Room Air 98.0 04/03/20 07:27 97 Room Air 04/03/20 03:25 98.9 96 18 131/86 (101) 97 Room Air 98.9 04/02/20 23:26 98.5 97 18 106/60 (75) 98 Room Air 98.5 04/02/20 21:29 96 Room Air 04/02/20 19:59 Nasal Cannula 2.0 04/02/20 18:28 99.2 95 18 113/56 (75) 97 Room Air 99.2 04/02/20 14:26 98.0 95 18 112/58 (76) 94 Room Air 98.0 04/02/20 12:43 93 103/63 04/02/20 11:50 95 Room Air Labs Labs Laboratory Tests Test 04/02/20 11:50 04/03/20 03:30 Hemoglobin 7.3 g/dL (13.0-17.5) 7.6 g/dL (13.0-17.5) Hematocrit 23.6 % (39.0-53.0) 25.4 % (39.0-53.0) White Blood Count 9.5 x10^3/uL (4.0-11.0) Red Blood Count 3.58 x10^6/uL (4.30-5.70) Mean Corpuscular Volume 71 fL (79-100) Mean Corpuscular Hemoglobin 21 pg (25-35) Mean Corpuscular Hemoglobin Concent 30 g/dL (31-37) Red Cell Distribution Width 23.6 % (11.5-14.5) Platelet Count 353 x10^3/uL (140-400) Neutrophils (%) (Auto) 69 % (31-73) Lymphocytes (%) (Auto) 19 % (24-48) Monocytes (%) (Auto) 10 % (0-9) Eosinophils (%) (Auto) 2 % (0-3) Basophils (%) (Auto) 1 % (0-3) Neutrophils # (Auto) 6.5 x10^3/uL (1.8-7.7) Lymphocytes # (Auto) 1.7 x10^3/uL (1.0-4.8) Monocytes # (Auto) 0.9 x10^3/uL (0.0-1.1) Eosinophils # (Auto) 0.1 x10^3/uL (0.0-0.7) Basophils # (Auto) 0.1 x10^3/uL (0.0-0.2) Sodium Level 141 mmol/L (136-145) Potassium Level 4.1 mmol/L (3.5-5.1) Chloride Level 108 mmol/L (98-107) Carbon Dioxide Level 26 mmol/L (21-32) Anion Gap 7 (6-14) Blood Urea Nitrogen 9 mg/dL (8-26) Creatinine 0.7 mg/dL (0.7-1.3) Estimated GFR (Cockcroft-Gault) 115.4 Glucose Level 105 mg/dL (70-99) Calcium Level 8.2 mg/dL (8.5-10.1) Imaging Imaging Ultrasound of the abdomen: Fatty liver otherwise normal Physical Exam Physical Exam Alert Chest clear Heart regular rate and rhythm Abdomen soft, nontender, no organomegaly or masses, normal bowel Assessment Assessment Anemia. Likely iron deficient from occult GI blood loss. Extensive work-up in the past. Will need to review that as an outpatient before considering any further work-up. Hemoccult negative at this time and doing well after transfusion so stable for discharge but will need close follow-up in the outpatient setting. Recommend repeat CBC in the next 2 weeks to confirm that the hemoglobin is going up and would recommend repetitive follow-up and possibly recurrent IV infusion of iron as an outpatient. Abdominal pain. Most likely related to either reflux, hiatal hernia or gastritis. Needs to be on PPI therapy daily with as needed use of antacids or famotidine. No evidence for gallstones on his ultrasound. Alcohol abuse history. Has been off alcohol for many months. I have encouraged him to continue off alcohol. His ultrasound revealed fatty liver but no evidence for cirrhosis. His liver function studies were normal. Plan Plan Plan okay for discharge today. Very important that he get a follow-up CBC in the next 2 weeks and we can either follow that up in our office, or his PCP office or even in [place] where he is had his previous work-up He will likely require an additional iron infusion since he cannot tolerate oral iron. This will be decided in the future based on his hemoglobin levels. Alcohol abstinence Pantoprazole 40 mg p.o. daily Follow a antireflux diet regimen with small low-fat meals. Justicifation of Admission Dx: Justifications for Admission: Justification of Admission Dx: Yes (PROFOUND ANEMIA) WILLIE FLYNN MD Apr 03, 2020 10:53
--- NOTE | 2020-04-03 11:06 | PDOC3 ---
Discharge Summary Visit Information Date of Admission: Apr 02, 2020 Date of Discharge: Apr 03, 2020 Admitting Diagnosis Comment: Microcytic anemia most likely secondary to iron deficiency Iron deficiency secondary to most likely GI bleeding Patient refers having black tarry stools, most likely upper GI bleeding is the etiology History of alcohol abuse currently sober Tobacco abuse greater than [id number] history of smoking Tobacco cessation counseling done less than 10 minutes Final Diagnosis Problems Medical Problems: (1) Profound anemia Status: Acute Microcytic anemia most likely secondary to iron deficiency Iron deficiency secondary to most likely GI bleeding Patient refers having black tarry stools, most likely upper GI bleeding is the etiology History of alcohol abuse currently sober Tobacco abuse greater than [id number] history of smoking Tobacco cessation counseling done less than 10 minutes Brief Hospital Course Allergies Allergies Coded Allergies Type Severity Reaction Last Updated Verified codeine Adverse Reaction Intermediate itching 04/01/20 Yes Vital Signs Vital Signs Date Time Temp Pulse Resp B/P (MAP) Pulse Ox O2 Delivery O2 Flow Rate FiO2 04/03/20 08:01 104 120/75 04/03/20 08:00 Room Air 04/03/20 07:48 98.0 16 100 98.0 04/02/20 19:59 2.0 Lab Results Laboratory Tests Test 04/01/20 23:04 04/01/20 23:33 04/02/20 06:55 04/02/20 11:50 White Blood Count 13.5 x10^3/uL (4.0-11.0) 11.8 x10^3/uL (4.0-11.0) Red Blood Count 2.76 x10^6/uL (4.30-5.70) 3.06 x10^6/uL (4.30-5.70) Hemoglobin 5.1 g/dL (13.0-17.5) 6.2 g/dL (13.0-17.5) 7.3 g/dL (13.0-17.5) Hematocrit 18.2 % (39.0-53.0) 20.8 % (39.0-53.0) 23.6 % (39.0-53.0) Mean Corpuscular Volume 66 fL (79-100) 68 fL (79-100) Mean Corpuscular Hemoglobin 19 pg (25-35) 20 pg (25-35) Mean Corpuscular Hemoglobin Concent 28 g/dL (31-37) 30 g/dL (31-37) Red Cell Distribution Width 19.4 % (11.5-14.5) 22.2 % (11.5-14.5) Platelet Count 402 x10^3/uL (140-400) 356 x10^3/uL (140-400) Neutrophils (%) (Auto) 73 % (31-73) 67 % (31-73) Lymphocytes (%) (Auto) 17 % (24-48) 23 % (24-48) Monocytes (%) (Auto) 8 % (0-9) 7 % (0-9) Eosinophils (%) (Auto) 1 % (0-3) 2 % (0-3) Basophils (%) (Auto) 1 % (0-3) 1 % (0-3) Neutrophils # (Auto) 9.8 x10^3/uL (1.8-7.7) 7.9 x10^3/uL (1.8-7.7) Lymphocytes # (Auto) 2.3 x10^3/uL (1.0-4.8) 2.6 x10^3/uL (1.0-4.8) Monocytes # (Auto) 1.0 x10^3/uL (0.0-1.1) 0.9 x10^3/uL (0.0-1.1) Eosinophils # (Auto) 0.1 x10^3/uL (0.0-0.7) 0.3 x10^3/uL (0.0-0.7) Basophils # (Auto) 0.2 x10^3/uL (0.0-0.2) 0.1 x10^3/uL (0.0-0.2) Platelet Estimate Adequate (ADEQUATE) Polychromasia Slight Hypochromasia Marked Anisocytosis Slight Microcytosis Marked Spherocytes Occ Ovalocytes Few Sodium Level 137 mmol/L (136-145) 139 mmol/L (136-145) Potassium Level 3.7 mmol/L (3.5-5.1) 4.2 mmol/L (3.5-5.1) Chloride Level 100 mmol/L (98-107) 105 mmol/L (98-107) Carbon Dioxide Level 26 mmol/L (21-32) 26 mmol/L (21-32) Anion Gap 11 (6-14) 8 (6-14) Blood Urea Nitrogen 17 mg/dL (8-26) 13 mg/dL (8-26) Creatinine 1.0 mg/dL (0.7-1.3) 0.8 mg/dL (0.7-1.3) Estimated GFR (Cockcroft-Gault) 76.5 98.9 BUN/Creatinine Ratio 17 (6-20) Glucose Level 103 mg/dL (70-99) 100 mg/dL (70-99) Calcium Level 8.5 mg/dL (8.5-10.1) 8.3 mg/dL (8.5-10.1) Total Bilirubin 0.3 mg/dL (0.2-1.0) Aspartate Amino Transf (AST/SGOT) 17 U/L (15-37) Alanine Aminotransferase (ALT/SGPT) 23 U/L (16-63) Alkaline Phosphatase 95 U/L (46-116) Total Protein 7.5 g/dL (6.4-8.2) Albumin 3.6 g/dL (3.4-5.0) Albumin/Globulin Ratio 0.9 (1.0-1.7) Stool Occult Blood Negative (NEG) Test 04/03/20 03:30 White Blood Count 9.5 x10^3/uL (4.0-11.0) Red Blood Count 3.58 x10^6/uL (4.30-5.70) Hemoglobin 7.6 g/dL (13.0-17.5) Hematocrit 25.4 % (39.0-53.0) Mean Corpuscular Volume 71 fL (79-100) Mean Corpuscular Hemoglobin 21 pg (25-35) Mean Corpuscular Hemoglobin Concent 30 g/dL (31-37) Red Cell Distribution Width 23.6 % (11.5-14.5) Platelet Count 353 x10^3/uL (140-400) Neutrophils (%) (Auto) 69 % (31-73) Lymphocytes (%) (Auto) 19 % (24-48) Monocytes (%) (Auto) 10 % (0-9) Eosinophils (%) (Auto) 2 % (0-3) Basophils (%) (Auto) 1 % (0-3) Neutrophils # (Auto) 6.5 x10^3/uL (1.8-7.7) Lymphocytes # (Auto) 1.7 x10^3/uL (1.0-4.8) Monocytes # (Auto) 0.9 x10^3/uL (0.0-1.1) Eosinophils # (Auto) 0.1 x10^3/uL (0.0-0.7) Basophils # (Auto) 0.1 x10^3/uL (0.0-0.2) Sodium Level 141 mmol/L (136-145) Potassium Level 4.1 mmol/L (3.5-5.1) Chloride Level 108 mmol/L (98-107) Carbon Dioxide Level 26 mmol/L (21-32) Anion Gap 7 (6-14) Blood Urea Nitrogen 9 mg/dL (8-26) Creatinine 0.7 mg/dL (0.7-1.3) Estimated GFR (Cockcroft-Gault) 115.4 Glucose Level 105 mg/dL (70-99) Calcium Level 8.2 mg/dL (8.5-10.1) Laboratory Tests Test 04/02/20 11:50 04/03/20 03:30 Hemoglobin 7.3 g/dL (13.0-17.5) 7.6 g/dL (13.0-17.5) Hematocrit 23.6 % (39.0-53.0) 25.4 % (39.0-53.0) White Blood Count 9.5 x10^3/uL (4.0-11.0) Red Blood Count 3.58 x10^6/uL (4.30-5.70) Mean Corpuscular Volume 71 fL (79-100) Mean Corpuscular Hemoglobin 21 pg (25-35) Mean Corpuscular Hemoglobin Concent 30 g/dL (31-37) Red Cell Distribution Width 23.6 % (11.5-14.5) Platelet Count 353 x10^3/uL (140-400) Neutrophils (%) (Auto) 69 % (31-73) Lymphocytes (%) (Auto) 19 % (24-48) Monocytes (%) (Auto) 10 % (0-9) Eosinophils (%) (Auto) 2 % (0-3) Basophils (%) (Auto) 1 % (0-3) Neutrophils # (Auto) 6.5 x10^3/uL (1.8-7.7) Lymphocytes # (Auto) 1.7 x10^3/uL (1.0-4.8) Monocytes # (Auto) 0.9 x10^3/uL (0.0-1.1) Eosinophils # (Auto) 0.1 x10^3/uL (0.0-0.7) Basophils # (Auto) 0.1 x10^3/uL (0.0-0.2) Sodium Level 141 mmol/L (136-145) Potassium Level 4.1 mmol/L (3.5-5.1) Chloride Level 108 mmol/L (98-107) Carbon Dioxide Level 26 mmol/L (21-32) Anion Gap 7 (6-14) Blood Urea Nitrogen 9 mg/dL (8-26) Creatinine 0.7 mg/dL (0.7-1.3) Estimated GFR (Cockcroft-Gault) 115.4 Glucose Level 105 mg/dL (70-99) Calcium Level 8.2 mg/dL (8.5-10.1) Brief Hospital Course History of Present Illness Patient is a 59-year-old gentleman with past medical history of alcohol abuse and several DUIs who has been sober for over a year now. The patient has also had longstanding history of smoking and he has been in his usual state of health until several months ago apparently he had a severe anemia that prompted him to visit [facility] where he had an EGD capsule endoscopy and colonoscopy done and there were no evidence of active ulcers on his endoscopy he did have a hiatal hernia which he seems to have a lot of discomfort from. The patient also was found to have some areas in the small intestine that most likely explain his anemia. The patient was told to follow-up in the outpatient setting but he has not done so and the day of his admission the patient was told by his daughter that he looked like a zombie patient was also having some shortness of breath and chest discomfort over the right hemithorax with no palpitations no dizziness no lightheadedness was reported but he did have generalized weakness. He was evaluated in the ER and found to have severe anemia.hemodynamic instability and but we have been asked to admit the patient for blood tr ansfusion and also GI evaluation. At the present time the patient is in no acute distress his not exhibiting increased work of breathing no chest pain no palpitations have been reported no abdominal pain either., Plan of care has been explained detail and all of his concerns addressed to the best of my abilities Patient seen in consultation by GI and he was given several units of packed red blood cells in order to bring his counts to 7.6 on the day of discharge. He was given iron infusion as recommended by Dr. Graham Recommendations from GI Plan Plan okay for discharge today. Very important that he get a follow-up CBC in the next 2 weeks and we can either follow that up in our office, or his PCP office or even in [place] where he is had his previous work-up He will likely require an additional iron infusion since he cannot tolerate oral iron. This will be decided in the future based on his hemoglobin levels. Alcohol abstinence Pantoprazole 40 mg p.o. daily Follow a antireflux diet regimen with small low-fat meals. Gen.: well-developed well-nourished in no apparent distress Head: Normal shape atraumatic Eyes: Pupils equal reactive to light and accommodation, normal conjunctivae and lids Ears: Normal shape Nose: Normal shape no trauma Mouth: No exudates of the back of throat no thrush no lesions Neck: Supple no JVD no carotid bruit or lymphadenopathy no thyromegaly Chest: Lungs clear to auscultation with good inspiratory effort no crackles rales or rhonchi Cardiovascular: S1-S2 regular rhythm no murmurs gallops or rubs Abdomen: Bowel sounds present soft nontender no hepatosplenomegaly appreciated sign Extremities: No clubbing no cyanosis no edema peripheral pulses palpated bilaterally Neurological: Alert awake oriented in person time place and situation, cranial nerves II through XII intact, no motor or sensory deficits appreciated Psych: Appropriate mood, cooperative Discharge Information Condition at Discharge: Improved Follow Up: Weeks Disposition/Orders: D/C to Home Scheduled Amlodipine Besylate (Amlodipine Besylate) 10 Mg Tablet, 10 MG PO DAILY for htn, (Reported) Entered as Reported by: BRITTON SIMONS on 04/02/20358 Last Taken: Unknown Dose on Unknown Date & Time Last Action: Continued on 04/02/2045 by DI ALEJANDRO MD Aspirin (Aspirin) 81 Mg Tab.chew, 1 TAB PO DAILY for s/p FL, #30 Ref 3 (Reported) Entered as Reported by: BRITTON SIMONS on 04/02/20358 Last Taken: Unknown Dose on Unknown Date & Time Last Action: Continued on 04/02/20644 by DI ALEJANDRO MD Atorvastatin Calcium (Atorvastatin Calcium) 40 Mg Tablet, 40 MG PO DAILY for FOR CHOLESTEROL, #30 Ref 0 (Reported) Entered as Reported by: BRITTON SIMONS on 04/02/20358 Last Taken: Unknown Dose on Unknown Date & Time Last Action: Continued on 04/02/20644 by DI ALEJANDRO MD Clonazepam (Clonazepam ) 0.5 Mg Tablet, 0.5 MG PO BID for FOR ANXIETY, (Reported) Entered as Reported by: BRITTON SIMONS on 04/02/20358 Last Taken: Unknown Dose on Unknown Date & Time Last Action: Continued on 04/02/20644 by DI ALEJANDRO MD Lisinopril (Lisinopril) 20 Mg Tablet, 20 MG PO DAILY for FOR HYPERTENSION, #30 Ref 0 (Reported) Entered as Reported by: BRITTON SIMONS on 04/02/20358 Last Taken: Unknown Dose on Unknown Date & Time Last Action: Continued on 04/02/20644 by DI ALEJANDRO MD Metoprolol Succinate (Metoprolol Succinate ( Xl )) 25 Mg Tab.er.24h, 25 MG PO DAILY for FOR HYPERTENSION, #30 Ref 0 (Reported) Entered as Reported by: BRITTON SIMONS on 04/02/20358 Last Taken: Unknown Dose on Unknown Date & Time Last Action: Continued on 04/02/20644 by DI ALEJANDRO MD Scheduled PRN Albuterol Sulfate (Ventolin Hfa Inhaler) 18 Gm Hfa.aer.ad, 2 PUFF INH PRN Q6HRS PRN for COUGH, Ref 0 (Reported) Entered as Reported by: BRITTON SIMONS on 04/02/20358 Last Taken: Unknown Dose on Unknown Date & Time Last Action: Converted on 04/02/20644 by DI ALEJANDRO MD Cyclobenzaprine Hcl (Cyclobenzaprine Hcl) 10 Mg Tablet, 10 MG PO PRN TID PRN for MUSCLE PAIN, (Reported) Entered as Reported by: BRITTON SIMONS on 04/02/20358 Last Taken: Unknown Dose on Unknown Date & Time Last Action: Continued on 04/02/20 0645 by DI ALEJANDRO MD Justicifation of Admission Dx: Justifications for Admission: Justification of Admission Dx: Yes (PROFOUND ANEMIA) DI ALEJANDRO MD Apr 03, 2020 11:06
[2020-04-03] MEDS ORDERED: PANT40TA77 PO (11:08)
[2020-04-03 11:25] VITALS: BP 109/67
--- NOTE | 2020-04-03 12:56 | NUR ---
PATIENTS IV OUT AND TELE MONITOR OFF. PATIENT STABLE AND HAS NO COMPLAINTS AT TIME OF DISCHARGE. INFORMED PATIENT TO FOLLOW UP WITH PCP IN 1-2 WEEKS AND GI IN 2-4 WEEKS. PANTOPRAZOLE PRESCRIPTION SENT TO PATIENTS PHARMACY. PATIENT HAS NO QUESTIONS AT TIME OF DISCHARGE. PATIENT ESCORTED TO [employer] PERSONAL VEHICLE PER WHEELCHAIR BY THIS RN.
[2020-04-05 08:58] LABS: HEMOGLOBIN 6.2 g/dL (13.0-17.5)
[2020-04-05 08:59] LABS: HEMATOCRIT 20.8 % (39.0-53.0)
== END 2020-04-03 13:06 | disposition home or self-care (01) | DRG 379 ==
LOC: ER 22:27 → 2 NORTH 04-02 01:35
PROVIDERS: ADMIT Internal Medicine; ATTEND Internal Medicine
PROC: 30233N1 Transfusion of Nonautologous Red Blood Cells into Peripheral Vein, Percutaneous Approach (ICD-10-PCS; principal; 2020-04-02)
DX: K92.2 Gastrointestinal hemorrhage, unspecified (principal); D50.9 Iron deficiency anemia, unspecified; F10.10 Alcohol abuse, uncomplicated; I25.10 Atherosclerotic heart disease of native coronary artery without angina pectoris; J41.0 Simple chronic bronchitis; K21.9 Gastro-esophageal reflux disease without esophagitis; F17.210 Nicotine dependence, cigarettes, uncomplicated; K44.9 Diaphragmatic hernia without obstruction or gangrene; K76.0 Fatty (change of) liver, not elsewhere classified; Z71.6 Tobacco abuse counseling; Z79.899 Other long term (current) drug therapy; Z88.8 Allergy status to other drugs, medicaments and biological substances
CPT/HCPCS: 36415; 71045; 76705; 80048; 80053; 82274; 85014; 85018; 85025; 86850; 86900; 86901; 86920; 93005; 94640; 94760; C9113; J1756; J7030; P9016; 99285-25; G0378; J7613